=== PATIENT | male | born 1990 | race Caucasian/White ===

== ENCOUNTER 2017-03-21 20:26 | Emergency (ER) | payer MEDICAID ==
[~2017-03-21] VITALS: Ht 180.3 cm; Wt 78.5 kg
[~2017-03-21 20:26] MED LIST: DIAZ10TA4 PO; NAPR500T3 PO; ONDA4TAB10 PO; TRAZ50TA18 PO
[2017-03-21] MEDS ORDERED: KETOROLAC 30 MG/1 ML IVPush ONE (23:00)
[2017-03-21] MEDS ORDERED: FAMOTIDINE 20 MG/2 ML IVPush ONE (23:00)
[2017-03-21] MEDS ORDERED: DIPHENHYDRAMINE 50 MG/ML, 1ML IVPush ONE (23:00)
[2017-03-21] MEDS ORDERED: METOCLOPRAMIDE 5 MG/ML, 2ML IVPush ONE (23:00)
[2017-03-21] MEDS ORDERED: SODIUM CHLORIDE 0.9% 1,000ML IVBOLUS ONE (23:00)
[2017-03-21] MEDS ORDERED: FAMOTIDINE 20 MG/2 ML ONE (23:56)
[2017-03-21] MEDS ORDERED: METOCLOPRAMIDE 5 MG/ML, 2ML ONE (23:56)
[2017-03-21] MEDS ORDERED: KETOROLAC 30 MG/1 ML ONE (23:56)
[2017-03-21] MEDS ORDERED: DIPHENHYDRAMINE 50 MG/ML, 1ML ONE (23:56)
[2017-03-22] MEDS ORDERED: MORPHINE SULFATE 4 MG/ML, 1ML IVPush PRN (00:30)
[2017-03-22] MEDS ORDERED: MORPHINE SULFATE 4 MG/ML, 1ML ONE (00:34)
[2017-03-22 01:06] VITALS: BP 135/94
== END 2017-03-22 01:08 | disposition home or self-care (01) ==
LOC: ED 23:41
DX: G43.009 Migraine without aura, not intractable, without status migrainosus (principal); Z87.891 Personal history of nicotine dependence
CPT/HCPCS: 70450; 96361; 96374; 96375; 99284; J1200; J1885; J2765; J7030; S0028

== ENCOUNTER 2017-04-08 11:43 | Emergency (ER) | payer MEDICAID ==
[~2017-04-08] VITALS: Ht 180.3 cm; Wt 78.7 kg
[2017-04-08] MEDS ORDERED: KETOROLAC 30 MG/1 ML IM ONE (12:30)
[2017-04-08] MEDS ORDERED: PROMETHAZINE 25 MG/ML, 1ML IM ONE (12:30)
[2017-04-08] MEDS ORDERED: DIAZEPAM 5 MG TABLET PO ONE (12:30)
[2017-04-08] MEDS ORDERED: KETOROLAC 30 MG/1 ML ONE (12:39)
[2017-04-08] MEDS ORDERED: DIAZEPAM 5 MG TABLET ONE (12:40)
[2017-04-08] MEDS ORDERED: PROMETHAZINE 25 MG/ML, 1ML ONE (12:41)
[2017-04-08 14:44] VITALS: BP 129/78
== END 2017-04-08 14:46 | disposition home or self-care (01) ==
LOC: ED 13:32
DX: F13.239 Sedative, hypnotic or anxiolytic dependence with withdrawal, unspecified (principal); R51 Headache
CPT/HCPCS: 96372; 99284; J1885; J2550

== ENCOUNTER 2017-05-08 01:25 | Emergency (ER) | payer BC, MEDICAID ==
[~2017-05-08] VITALS: Ht 175.3 cm; Wt 75.0 kg
[2017-05-08 01:57] LABS: HEMOGLOBIN 14.9 g/dL (13.7-18.0); WHITE BLOOD COUNT 8.4 x10^3/uL (3.4-10)
[2017-05-08] MEDS ORDERED: MORPHINE SULFATE 4 MG/ML, 1ML ONE (01:58)
[2017-05-08] MEDS ORDERED: PROMETHAZINE 25 MG/ML, 1ML ONE (01:58)
[2017-05-08] MEDS ORDERED: FAMOTIDINE 20 MG/2 ML ONE (01:58)
[2017-05-08] MEDS ORDERED: MAALOX/HYOSCYAMINE/LIDOCAINE 45 ML BTL ONE (01:58)
[2017-05-08] MEDS ORDERED: FAMOTIDINE 20 MG/2 ML IVP ONE (02:00)
[2017-05-08] MEDS ORDERED: MAALOX/HYOSCYAMINE/LIDOCAINE 45 ML BTL PO ONE (02:00)
[2017-05-08] MEDS ORDERED: MORPHINE SULFATE 4 MG/ML, 1ML IVPush PRN (02:00)
[2017-05-08] MEDS ORDERED: PROMETHAZINE 25 MG/ML, 1ML IM ONE (02:00)
[2017-05-08 02:08] LABS: ASPARTATE AMINO TRANSFERASE 65 U/L (15-37); BLOOD UREA NITROGEN 13 mg/dL (7-18)
[2017-05-08] MEDS ORDERED: DULO20CA45 PO (02:08)
[2017-05-08] MEDS ORDERED: METOCLOPRAMIDE 5 MG/ML, 2ML ONE (03:45)
[2017-05-08] MEDS ORDERED: LORazepam 2 MG/ML, 1ML IVPush ONE (04:30)
[2017-05-08] MEDS ORDERED: METOCLOPRAMIDE 5 MG/ML, 2ML IVPush ONE (04:30)
[2017-05-08] MEDS ORDERED: LORazepam 2 MG/ML, 1ML ONE (04:31)
[2017-05-08] MEDS ORDERED: CHLORDIAZEPOXIDE 25 MG CAPSULE PO ONE (06:00)
[2017-05-08 06:03] VITALS: BP 136/79
== END 2017-05-08 06:27 | disposition home or self-care (01) ==
LOC: ED 06:20
DX: F10.239 Alcohol dependence with withdrawal, unspecified (principal); G43.909 Migraine, unspecified, not intractable, without status migrainosus; K29.20 Alcoholic gastritis without bleeding; K70.9 Alcoholic liver disease, unspecified; K85.90 Acute pancreatitis without necrosis or infection, unspecified
CPT/HCPCS: 36415; 80053; 80307; 83690; 85025; 93005; 96361; 96372; 96374; 99285; J2060; J2550; J2765; S0028

== ENCOUNTER 2018-11-20 13:09 | Inpatient (IN) | payer MEDICAID ==
[~2018-11-20] VITALS: Ht 180.3 cm; Wt 80.2 kg
[~2018-11-20 13:09] MED LIST changes: +ALPR1TAB2 PO; +CEPH-368 PO; +CLON1TAB11 PO; +CYCL2DRO4 OP; +DULO20CA45 PO; +MIRT30TA6 PO; +NAPR-685 PO; -NAPR500T3 PO; +OXYC-302 PO; +PRAM0.125 PO; +PRED5DRO20 OP; +PROP10TA16 PO; +RANI150T23 PO; -TRAZ50TA18 PO; +TRAZ50TA66 PO
[2018-11-20] MEDS ORDERED: VANCOMYCIN PER PHARMACY MC ONE (14:00)
[2018-11-20] MEDS ORDERED: VANCOMYCIN 1,600 MG in SODIUM CHLORIDE 0.9% 250 ML IV ONE (14:00)
[2018-11-20] MEDS ORDERED: PIPERACILLIN/TAZO/PMX 4.5GM 100 ML IVPB ONE (14:00)
[2018-11-20] MEDS ORDERED: SODIUM CHLORIDE FLUSH 10ML SYR IVF ONE (14:00)
[2018-11-20 14:27] LABS: ALANINE AMINOTRANSFERASE 42 U/L (12-78); ALBUMIN 4.6 g/dL (3.4-5.0); ANION GAP 10 mmol/L (5-15); CALCIUM 9.6 mg/dL (8.5-10.1); CHLORIDE 102 mmol/L (98-107)
[2018-11-20 14:29] LABS: ALKALINE PHOSPHATASE 101 U/L (45-117); TOTAL PROTEIN 8.8 g/dL (6.4-8.2)
[2018-11-20 14:32] LABS: BASOPHILS # (AUTO) 0.03 x10^3/uL (0-0.1); BASOPHILS % (AUTO) 1 % (0-1); EOSINOPHILS % (AUTO) 2 % (1-7); LYMPHOCYTES % (AUTO) 23 % (22-44); MD NO; MEAN CORPUSCULAR HEMOGLOBIN 30.1 pg (27.5-34.5); MEAN CORPUSCULAR VOLUME 86.2 fL (81-97); MEAN PLATELET VOLUME 7.4 fL (7.4-10.4); MONOCYTES # (AUTO) 0.27 x10^3/uL (0.2-0.8); MONOCYTES % (AUTO) 5 % (2-9); NEUTROPHILS # (AUTO) 3.89 x10^3/uL (1.8-6.8); NEUTROPHILS % (AUTO) 70 % (42-75); PLATELET COUNT 315 x10^3/uL (130-400); RED BLOOD COUNT 4.57 x10^6/uL (4.38-5.82); RED CELL DISTRIBUTION WIDTH 14.8 % (9.4-14.8)
--- NOTE | 2018-11-20 14:51 | NUR ---
Pt able to ambulate to bathroom with crutches. LLE wound with sutures in place and erythema and redness. Attempting to obtain IV access for antibitiotics. Pt is a difficult stick
--- NOTE | 2018-11-20 14:59 | NUR ---
PIV ATTEMPT X 3 BY THIS RN W/O SUCCESS. NOTIFIED OF DELAY IN ANTIBIOTIC'S 2/2 TO NO IV ACCESS. RN, URBAN TO ATTEMPT US GUIDED
[2018-11-20] MEDS ORDERED: SODIUM CHLORIDE FLUSH 10ML SYR IVF PRN (15:30)
[2018-11-20] MEDS ORDERED: ONDANSETRON ODT 4 MG PO PRN (16:00)
[2018-11-20] MEDS ORDERED: POLYETHYLENE GLYCOL 17 GM PACKET PO PRN (16:00)
[2018-11-20] MEDS ORDERED: LABETALOL 5MG/ML, 20ML IVPush PRN (16:00)
[2018-11-20] MEDS ORDERED: ONDANSETRON 2MG/ML, 2ML IVPush PRN (16:00)
--- NOTE | 2018-11-20 16:00 | NUR ---
IV ACCESSED, HOSPITALIST AT BEDSIDE FOR ADMIT. ABX STARTED PER MAR BLOOD CULTURED DRAWN PRIOR
[2018-11-20] MEDS ORDERED: PHARMACOKINETIC MONITORING MC PRN (16:30)
[2018-11-20] MEDS ORDERED: PHARMACOKINETIC CONSULTATION MC ONE (16:30)
[2018-11-20] MEDS ORDERED: VANCOMYCIN PER PHARMACY MC PRN (16:30)
[2018-11-20 16:32] LABS: FREE T4 (FREE THYROXINE) 1.68 ng/dL (0.76-1.46); THYROID STIMULATING HORMONE 1.41 mIU/L (0.358-3.740)
[2018-11-20] MEDS ORDERED: ENOXAPARIN 40 MG/0.4 ML ONE (16:38)
[2018-11-20] MEDS: ENOXAPARIN 40 MG/0.4 ML SQ SCH (16:42)
[2018-11-20 17:19] VITALS: BP 120/78
[2018-11-20 19:46] VITALS: BP 125/84
[2018-11-20] MEDS: AMPICILLIN/SULBACTAM 3 GM in SODIUM CHLORIDE 0.9% 100 ML IV SCH (20:03)
[2018-11-20] MEDS: IBUPROFEN 200 MG TABLET PO PRN (21:23)
[2018-11-20 22:43] LABS: MICROSCOPIC NOT IND
[2018-11-20 22:50] LABS: CULTURE INDICATED? NO
[2018-11-21] MEDS: AMPICILLIN/SULBACTAM 3 GM in SODIUM CHLORIDE 0.9% 100 ML IV SCH ×4 (01:30→19:57)
[2018-11-21 01:46] VITALS: BP 110/57
[2018-11-21] MEDS: VANCOMYCIN 1,600 MG in SODIUM CHLORIDE 0.9% 250 ML IV SCH ×2 (04:51→17:49)
[2018-11-21 05:58] LABS: BASOPHILS # (AUTO) 0.03 x10^3/uL (0-0.1); BASOPHILS % (AUTO) 1 % (0-1); EOSINOPHILS % (AUTO) 2 % (1-7); LYMPHOCYTES # (AUTO) 1.23 x10^3/uL (1-3.4); LYMPHOCYTES % (AUTO) 20 % (22-44); MD NO; MEAN CORPUSCULAR HEMOGLOBIN 30.1 pg (27.5-34.5); MEAN CORPUSCULAR HGB CONC 35.2 g/dL (33.2-36.2); MEAN CORPUSCULAR VOLUME 85.4 fL (81-97); MEAN PLATELET VOLUME 7.8 fL (7.4-10.4); MONOCYTES # (AUTO) 0.44 x10^3/uL (0.2-0.8); MONOCYTES % (AUTO) 7 % (2-9); NEUTROPHILS % (AUTO) 71 % (42-75); PLATELET COUNT 267 x10^3/uL (130-400); RED BLOOD COUNT 4.47 x10^6/uL (4.38-5.82); RED CELL DISTRIBUTION WIDTH 14.9 % (9.4-14.8)
[2018-11-21 06:08] LABS: ALBUMIN 3.5 g/dL (3.4-5.0); ANION GAP 7 mmol/L (5-15); CALCIUM 8.4 mg/dL (8.5-10.1); CHLORIDE 111 mmol/L (98-107)
[2018-11-21 06:21] LABS: ALANINE AMINOTRANSFERASE 32 U/L (12-78); ALKALINE PHOSPHATASE 85 U/L (45-117); CREATININE 0.81 mg/dL (0.7-1.3); THYROID STIMULATING HORMONE 0.451 mIU/L (0.358-3.740); TOTAL PROTEIN 7.2 g/dL (6.4-8.2)
[2018-11-21 07:48] VITALS: BP 128/79
[2018-11-21] MEDS: SENNA/DOCUSATE TABLET PO SCH (07:51)
[2018-11-21] MEDS: IBUPROFEN 200 MG TABLET PO PRN ×3 (07:54→19:58)
[2018-11-21 13:12] VITALS: BP 103/67
[2018-11-21] MEDS: ENOXAPARIN 40 MG/0.4 ML SQ SCH (17:48)
[2018-11-21 20:40] VITALS: BP 124/77
[2018-11-22 01:12] VITALS: BP 120/82
[2018-11-22] MEDS: AMPICILLIN/SULBACTAM 3 GM in SODIUM CHLORIDE 0.9% 100 ML IV SCH ×3 (01:54→15:15)
[2018-11-22] MEDS: VANCOMYCIN 1,600 MG in SODIUM CHLORIDE 0.9% 250 ML IV SCH (04:17)
[2018-11-22 05:14] LABS: ALBUMIN 3.2 g/dL (3.4-5.0); ANION GAP 8 mmol/L (5-15); CALCIUM 8.8 mg/dL (8.5-10.1); CHLORIDE 111 mmol/L (98-107)
[2018-11-22 05:20] LABS: ALANINE AMINOTRANSFERASE 29 U/L (12-78); ALKALINE PHOSPHATASE 70 U/L (45-117); BILIRUBIN,TOTAL 0.6 mg/dL (0.2-1.0); CREATININE 0.78 mg/dL (0.7-1.3); TOTAL PROTEIN 6.9 g/dL (6.4-8.2)
[2018-11-22 05:22] LABS: BASOPHILS # (AUTO) 0.03 x10^3/uL (0-0.1); BASOPHILS % (AUTO) 1 % (0-1); EOSINOPHILS # (AUTO) 0.05 x10^3/uL (0-0.4); EOSINOPHILS % (AUTO) 1 % (1-7); LYMPHOCYTES # (AUTO) 1.38 x10^3/uL (1-3.4); LYMPHOCYTES % (AUTO) 28 % (22-44); MD NO; MEAN CORPUSCULAR HEMOGLOBIN 29.7 pg (27.5-34.5); MEAN CORPUSCULAR HGB CONC 34.6 g/dL (33.2-36.2); MEAN CORPUSCULAR VOLUME 85.9 fL (81-97); MONOCYTES # (AUTO) 0.37 x10^3/uL (0.2-0.8); MONOCYTES % (AUTO) 7 % (2-9); NEUTROPHILS # (AUTO) 3.11 x10^3/uL (1.8-6.8); NEUTROPHILS % (AUTO) 63 % (42-75); PLATELET COUNT 220 x10^3/uL (130-400); RED BLOOD COUNT 3.95 x10^6/uL (4.38-5.82); RED CELL DISTRIBUTION WIDTH 14.9 % (9.4-14.8)
[2018-11-22 06:51] VITALS: BP 114/71
[2018-11-22] MEDS: SENNA/DOCUSATE TABLET PO SCH (08:03)
[2018-11-22 13:38] VITALS: BP 118/80
== END 2018-11-22 17:55 | disposition left against medical advice (07) | DRG 603 ==
LOC: ED 14:08 → EDIP 15:04 → 3NE 16:00
PROVIDERS: ADMIT Internal Medicine; ATTEND Internal Medicine
DX: L03.115 Cellulitis of right lower limb (principal); F11.20 Opioid dependence, uncomplicated; L03.116 Cellulitis of left lower limb; F41.9 Anxiety disorder, unspecified; F17.210 Nicotine dependence, cigarettes, uncomplicated; F10.10 Alcohol abuse, uncomplicated; Z83.3 Family history of diabetes mellitus; Z82.49 Family history of ischemic heart disease and other diseases of the circulatory system; Z81.1 Family history of alcohol abuse and dependence; J45.909 Unspecified asthma, uncomplicated; F32.9 Major depressive disorder, single episode, unspecified; E87.6 Hypokalemia; D64.9 Anemia, unspecified; Z53.21 Procedure and treatment not carried out due to patient leaving prior to being seen by health care provider
CPT/HCPCS: 36415; 80053; 81003; 83605; 83735; 84100; 84145; 84439; 84443; 85025; 87040; 87070; 87205; 96365; 99285; G0378; J0295; J1650; J2543; J3370; J7050

== ENCOUNTER 2018-12-23 13:06 | Inpatient (IN) | payer MEDICAID ==
[~2018-12-23] VITALS: Ht 180.3 cm; Wt 81.6 kg
[~2018-12-23 13:06] MED LIST changes: -MIRT30TA6 PO; +MIRT30TA97 PO
[2018-12-23] MEDS ORDERED: SODIUM CHLORIDE FLUSH 10ML SYR IVF ONE ×2 (14:00→15:30)
[2018-12-23 14:19] LABS: BASOPHILS # (AUTO) 0.06 x10^3/uL (0-0.1); BASOPHILS % (AUTO) 1 % (0-1); EOSINOPHILS # (AUTO) 0.06 x10^3/uL (0-0.4); EOSINOPHILS % (AUTO) 1 % (1-7); LYMPHOCYTES % (AUTO) 16 % (22-44); MD NO; MEAN CORPUSCULAR HEMOGLOBIN 30.1 pg (27.5-34.5); MEAN CORPUSCULAR HGB CONC 34.6 g/dL (33.2-36.2); MEAN CORPUSCULAR VOLUME 87.1 fL (81-97); MEAN PLATELET VOLUME 8.4 fL (7.4-10.4); MONOCYTES # (AUTO) 0.72 x10^3/uL (0.2-0.8); MONOCYTES % (AUTO) 6 % (2-9); NEUTROPHILS # (AUTO) 8.85 x10^3/uL (1.8-6.8); NEUTROPHILS % (AUTO) 76 % (42-75); PLATELET COUNT 272 x10^3/uL (130-400); RED BLOOD COUNT 5.33 x10^6/uL (4.38-5.82); RED CELL DISTRIBUTION WIDTH 14.6 % (9.4-14.8)
[2018-12-23 14:29] LABS: ALANINE AMINOTRANSFERASE 57 U/L (12-78); ALBUMIN 4.7 g/dL (3.4-5.0); ANION GAP 9 mmol/L (5-15); CALCIUM 10.1 mg/dL (8.5-10.1); CHLORIDE 98 mmol/L (98-107); CREATININE 2.76 mg/dL (0.7-1.3)
[2018-12-23 14:32] LABS: ALKALINE PHOSPHATASE 86 U/L (45-117); BILIRUBIN,TOTAL 1.7 mg/dL (0.2-1.0); TOTAL PROTEIN 9.1 g/dL (6.4-8.2)
--- NOTE | 2018-12-23 14:58 | NUR ---
TO ROOM AT THIS TIME
--- NOTE | 2018-12-23 15:08 | NUR ---
FIRST CONTACT WITH PT. PT REPORTS INCREASING REDNESS/SWELLING/PAIN OVER L WRIST/HAND AND R GREAT TOE AND R UNDERWOOD SP HEROIN USE. OPEN WOUND NOTED ON RUE; NO DRAINAGE NOTED. PT REPORTS RECENT ADMIT FOR SURGICAL DEBRIDEMENT OF RLE. REPORTS RECENTLY FINISHING ABX RX, "I DON'T KNOW WHICH ONE- MAYBE KEFLEX?" PT IS TACHYCARDIC, HR 110-115 AND AFEBRILE. DENIES N/V/D/FEVER. BP/SPO2/ECG MONITORING IN PLACE. FAMILY AT BEDSIDE.
[2018-12-23] MEDS ORDERED: SODIUM CHLORIDE 0.9% 1,000ML IVBOLUS ONE (15:30)
[2018-12-23] MEDS ORDERED: AMPICILLIN/SULBACTAM 3 GM in SODIUM CHLORIDE 0.9% 100 ML IV ONE (15:30)
[2018-12-23] MEDS ORDERED: VANCOMYCIN PER PHARMACY MC ONE (15:30)
--- NOTE | 2018-12-23 15:50 | NUR ---
IV ESTABLISHED, BC X 1 DRAWN WITH IV START. IVF HUNG. AWAITING SECOND BC DRAW FOR ABX START.
[2018-12-23] MEDS ORDERED: VANCOMYCIN 1,600 MG in SODIUM CHLORIDE 0.9% 250 ML IV ONE (16:00)
[2018-12-23] MEDS ORDERED: PHARMACOKINETIC CONSULTATION MC ONE (16:00)
--- NOTE | 2018-12-23 16:35 | NUR ---
BC X2 DRAWN. ABX INITIATED.
[2018-12-23] MEDS ORDERED: SODIUM CHLORIDE 0.9% 1,000 ML IV SCH (17:01)
--- NOTE | 2018-12-23 17:13 | NUR ---
PT RETURNED FROM CT. NO S/S OF ABX RXN NOTED. SECOND ABX INITIATED. POC IS ADMIT. AWAITING BED ASSIGNMENT.
[2018-12-23] MEDS ORDERED: ALPRazolam 1MG TABLET PO SCH (17:30)
[2018-12-23] MEDS ORDERED: SODIUM CHLORIDE 0.9% 1,000 ML IV ONE (17:30)
[2018-12-23] MEDS ORDERED: ACETAMINOPHEN 325 MG TABLET PO PRN (17:30)
[2018-12-23] MEDS ORDERED: LABETALOL 5MG/ML, 20ML IVPush PRN (17:30)
[2018-12-23] MEDS ORDERED: ONDANSETRON 2MG/ML, 2ML IVPush PRN (17:30)
[2018-12-23 17:35] LABS: INTERNATIONAL NORMALIZED RATIO 1.03 (0.93-1.1); PROTHROMBIN TIME 10.8 Seconds (9.6-11.5)
--- NOTE | 2018-12-23 17:36 | NUR ---
REPORT TO TONY RN
[2018-12-23] MEDS: ALPRazolam 1MG TABLET PO PRN (18:02)
[2018-12-23] MEDS: HEPARIN 5,000 UNITS/ML, 1ML SQ SCH (18:31)
[2018-12-23 18:45] LABS: HCT (SEDRATE) 46.4 % (39.2-51.8)
[2018-12-23] MEDS: OXYcodone/APAP 5/325MG TABLET PO PRN ×2 (18:51→20:59)
[2018-12-23] MEDS: LINEZOLID PMX 600MG/300ML 300 ML IV SCH (18:51)
[2018-12-23 19:53] VITALS: BP 110/71
[2018-12-23 20:35] LABS: MICROSCOPIC NOT IND
[2018-12-23 20:42] LABS: CULTURE INDICATED? NO
[2018-12-23] MEDS: PIPERACILLIN/TAZO/PMX 3.375GM 50 ML IV SCH (21:49)
[2018-12-23] MEDS: MIRTAZAPINE 30 MG TAB.RAPDIS PO SCH (21:49)
[2018-12-24] MEDS: morphine SULFATE 10 MG/ML, 1ML IVPush PRN ×4 (00:46→21:32)
[2018-12-24 01:27] VITALS: BP 114/72
[2018-12-24] MEDS: ALPRazolam 1MG TABLET PO PRN ×2 (02:10→15:30)
[2018-12-24] MEDS: HEPARIN 5,000 UNITS/ML, 1ML SQ SCH ×3 (02:10→16:31)
[2018-12-24] MEDS: OXYcodone/APAP 5/325MG TABLET PO PRN ×3 (02:17→22:47)
[2018-12-24] MEDS: PIPERACILLIN/TAZO/PMX 3.375GM 50 ML IV SCH ×4 (03:40→21:22)
[2018-12-24 05:39] LABS: CHLORIDE 109 mmol/L (98-107)
[2018-12-24 05:46] LABS: ALANINE AMINOTRANSFERASE 44 U/L (12-78); ALBUMIN 2.8 g/dL (3.4-5.0); ALKALINE PHOSPHATASE 55 U/L (45-117); ANION GAP 6 mmol/L (5-15); BILIRUBIN,TOTAL 0.8 mg/dL (0.2-1.0); TOTAL PROTEIN 5.8 g/dL (6.4-8.2)
[2018-12-24 05:56] LABS: BASOPHILS # (AUTO) 0.06 x10^3/uL (0-0.1); BASOPHILS % (AUTO) 1 % (0-1); EOSINOPHILS % (AUTO) 2 % (1-7); LYMPHOCYTES # (AUTO) 1.62 x10^3/uL (1-3.4); LYMPHOCYTES % (AUTO) 30 % (22-44); MD NO; MEAN CORPUSCULAR HEMOGLOBIN 30.4 pg (27.5-34.5); MEAN CORPUSCULAR HGB CONC 34.8 g/dL (33.2-36.2); MEAN CORPUSCULAR VOLUME 87.4 fL (81-97); MEAN PLATELET VOLUME 8.4 fL (7.4-10.4); MONOCYTES # (AUTO) 0.46 x10^3/uL (0.2-0.8); MONOCYTES % (AUTO) 8 % (2-9); NEUTROPHILS # (AUTO) 3.24 x10^3/uL (1.8-6.8); NEUTROPHILS % (AUTO) 59 % (42-75); PLATELET COUNT 190 x10^3/uL (130-400); RED BLOOD COUNT 3.87 x10^6/uL (4.38-5.82); RED CELL DISTRIBUTION WIDTH 14.6 % (9.4-14.8)
[2018-12-24] MEDS: LINEZOLID PMX 600MG/300ML 300 ML IV SCH (06:23)
[2018-12-24 08:38] VITALS: BP 117/78
[2018-12-24] MEDS ORDERED: VANCOMYCIN PER PHARMACY MC PRN (13:30)
[2018-12-24] MEDS ORDERED: PHARMACOKINETIC MONITORING MC PRN (14:30)
[2018-12-24] MEDS ORDERED: PHARMACOKINETIC CONSULTATION MC ONE (14:30)
[2018-12-24] MEDS ORDERED: GADOBUTROL 7.5 MMOL/7.5 ML PFS ONE (15:36)
[2018-12-24] MEDS: VANCOMYCIN 1,600 MG in SODIUM CHLORIDE 0.9% 250 ML IV SCH (16:30)
[2018-12-24 16:32] VITALS: BP 118/60
[2018-12-24] MEDS ORDERED: SODIUM CHLORIDE 0.9% 1,000 ML IV SCH (17:01)
[2018-12-24 19:04] VITALS: BP 116/74
[2018-12-24] MEDS: MIRTAZAPINE 30 MG TAB.RAPDIS PO SCH (21:22)
[2018-12-25] MEDS ORDERED: IBUPROFEN 600 MG TABLET ONE (00:52)
[2018-12-25] MEDS: morphine SULFATE 10 MG/ML, 1ML IVPush PRN ×2 (01:00→10:34)
[2018-12-25] MEDS ORDERED: IBUPROFEN 200 MG TABLET PO PRN (01:00)
[2018-12-25] MEDS: HEPARIN 5,000 UNITS/ML, 1ML SQ SCH ×2 (01:22→09:12)
[2018-12-25 01:27] VITALS: BP 125/78
[2018-12-25] MEDS: ALPRazolam 1MG TABLET PO PRN ×2 (01:28→14:44)
[2018-12-25] MEDS ORDERED: IBUPROFEN 600 MG TABLET PO PRN (01:30)
[2018-12-25] MEDS: PIPERACILLIN/TAZO/PMX 3.375GM 50 ML IV SCH (03:30)
[2018-12-25] MEDS: VANCOMYCIN 1,600 MG in SODIUM CHLORIDE 0.9% 250 ML IV SCH (04:22)
[2018-12-25] MEDS: OXYcodone/APAP 5/325MG TABLET PO PRN (04:25)
[2018-12-25 05:34] LABS: BASOPHILS # (AUTO) 0.06 x10^3/uL (0-0.1); BASOPHILS % (AUTO) 1 % (0-1); EOSINOPHILS # (AUTO) 0.11 x10^3/uL (0-0.4); EOSINOPHILS % (AUTO) 2 % (1-7); LYMPHOCYTES # (AUTO) 1.56 x10^3/uL (1-3.4); LYMPHOCYTES % (AUTO) 30 % (22-44); MD NO; MEAN CORPUSCULAR HEMOGLOBIN 30.4 pg (27.5-34.5); MEAN CORPUSCULAR HGB CONC 34.6 g/dL (33.2-36.2); MEAN CORPUSCULAR VOLUME 87.9 fL (81-97); MEAN PLATELET VOLUME 8.5 fL (7.4-10.4); MONOCYTES # (AUTO) 0.48 x10^3/uL (0.2-0.8); MONOCYTES % (AUTO) 9 % (2-9); NEUTROPHILS # (AUTO) 3.07 x10^3/uL (1.8-6.8); NEUTROPHILS % (AUTO) 58 % (42-75); PLATELET COUNT 226 x10^3/uL (130-400); RED BLOOD COUNT 3.93 x10^6/uL (4.38-5.82); RED CELL DISTRIBUTION WIDTH 14.4 % (9.4-14.8)
[2018-12-25 05:50] LABS: ANION GAP 6 mmol/L (5-15); CALCIUM 8.3 mg/dL (8.5-10.1); CHLORIDE 113 mmol/L (98-107)
[2018-12-25 05:54] LABS: ALANINE AMINOTRANSFERASE 45 U/L (12-78); ALKALINE PHOSPHATASE 56 U/L (45-117); BILIRUBIN,TOTAL 0.4 mg/dL (0.2-1.0); CREATININE 0.99 mg/dL (0.7-1.3); TOTAL PROTEIN 6.4 g/dL (6.4-8.2)
[2018-12-25 07:30] VITALS: BP 120/76
[2018-12-25] MEDS ORDERED: DOXYCYCLINE 100MG TABLET PO SCH (09:00)
[2018-12-25] MEDS ORDERED: AMOXICILLIN/CLAV 875-125MG TABLET PO SCH (09:00)
[2018-12-25] MEDS ORDERED: ACET325T14 PO (11:26)
[2018-12-25] MEDS ORDERED: LINE600T37 PO (11:26)
[2018-12-25] MEDS ORDERED: LINEZOLID 600 MG TABLET PO SCH (11:30)
[2018-12-25] MEDS ORDERED: ENOXAPARIN 40 MG/0.4 ML SQ SCH (14:30)
[2018-12-25] MEDS ORDERED: DOXY100T PO (16:46)
== END 2018-12-25 15:35 | disposition home or self-care (01) | DRG 871 ==
LOC: ED 16:12 → EDIP 17:01 → 4WST 17:45
PROVIDERS: ADMIT Internal Medicine; ATTEND Internal Medicine
DX: A41.9 Sepsis, unspecified organism (principal); N17.0 Acute kidney failure with tubular necrosis; E87.1 Hypo-osmolality and hyponatremia; L03.116 Cellulitis of left lower limb; D17.9 Benign lipomatous neoplasm, unspecified; E11.9 Type 2 diabetes mellitus without complications; E86.0 Dehydration; F41.9 Anxiety disorder, unspecified; F11.10 Opioid abuse, uncomplicated; R65.20 Severe sepsis without septic shock; F32.9 Major depressive disorder, single episode, unspecified; Z88.3 Allergy status to other anti-infective agents; Z88.2 Allergy status to sulfonamides; Z88.8 Allergy status to other drugs, medicaments and biological substances
CPT/HCPCS: 36415; 76770; 80053; 81003; 82436; 82570; 83605; 84133; 84145; 84300; 85025; 85610; 85651; 85730; 86140; 87040; 87070; 87077; 87186; 87205; 96361; 96365; 96375; 99291; A9585; G0378; J0295; J1644; J2020; J2543; J3370; J2270; J7030; J7050

== ENCOUNTER 2019-05-16 01:29 | Emergency (ER) | payer MEDICAID ==
[~2019-05-16] VITALS: Ht 180.3 cm; Wt 77.7 kg
[~2019-05-16 01:29] MED LIST changes: +ACET325T14 PO; +DOXY100T PO; +LINE600T37 PO
[2019-05-16 02:15] LABS: BASOPHILS # (AUTO) 0.04 x10^3/uL (0-0.1); BASOPHILS % (AUTO) 0 % (0-1); EOSINOPHILS % (AUTO) 1 % (1-7); LYMPHOCYTES # (AUTO) 2.13 x10^3/uL (1-3.4); LYMPHOCYTES % (AUTO) 23 % (22-44); MD NO; MEAN CORPUSCULAR HEMOGLOBIN 28.7 pg (27.5-34.5); MEAN CORPUSCULAR HGB CONC 33.2 g/dL (33.2-36.2); MEAN CORPUSCULAR VOLUME 86.6 fL (81-97); MEAN PLATELET VOLUME 8.4 fL (7.4-10.4); MONOCYTES # (AUTO) 0.52 x10^3/uL (0.2-0.8); MONOCYTES % (AUTO) 6 % (2-9); NEUTROPHILS # (AUTO) 6.67 x10^3/uL (1.8-6.8); NEUTROPHILS % (AUTO) 71 % (42-75); PLATELET COUNT 271 x10^3/uL (130-400); RED CELL DISTRIBUTION WIDTH 13.8 % (9.4-14.8)
[2019-05-16 02:24] LABS: ALBUMIN 4.1 g/dL (3.4-5.0); ANION GAP 7 mmol/L (5-15); CALCIUM 9.1 mg/dL (8.5-10.1); CHLORIDE 104 mmol/L (98-107)
[2019-05-16 03:54] VITALS: BP 122/80
--- NOTE | 2019-05-16 04:34 | NUR ---
All results back. Pt up for recheck.
[2019-05-16] MEDS ORDERED: LIDOCAINE-MPF 1%, 5ML ONE (04:35)
--- NOTE | 2019-05-16 04:39 | NUR ---
I&D to take place. Set up and awaiting pa.
--- NOTE | 2019-05-16 04:42 | NUR ---
Pa at bedside.
[2019-05-16] MEDS ORDERED: LIDOCAINE-MPF 1%, 5ML INFIL ONE (05:00)
[2019-05-16] MEDS ORDERED: ONDANSETRON ODT 4 MG ONE (05:03)
--- NOTE | 2019-05-16 05:07 | NUR ---
Pt states feeling nauseated after I&D and medical detailist per mar and md order.
[2019-05-16] MEDS ORDERED: ONDANSETRON ODT 4 MG PO ONE (05:30)
== END 2019-05-16 05:09 ==
LOC: ED 05:03
DX: L02.413 Cutaneous abscess of right upper limb (principal); E11.9 Type 2 diabetes mellitus without complications
CPT/HCPCS: 10060; 36415; 76881; 80048; 82040; 85025; 99284; Q0162

== ENCOUNTER 2019-05-18 16:05 | Inpatient (IN) | payer MEDICAID ==
[~2019-05-18] VITALS: Ht 180.3 cm; Wt 84.3 kg
[2019-05-23 07:28] VITALS: BP 165/77
== END 2019-05-23 11:00 | disposition home or self-care (01) | DRG 603 ==
LOC: ED 17:32 → EDIP 17:34 → 4NOR 19:07
PROVIDERS: ADMIT Internal Medicine; ATTEND Internal Medicine
PROC: 0X9D3ZZ Drainage of Right Lower Arm, Percutaneous Approach (ICD-10-PCS; principal; 2019-05-21)
DX: L02.413 Cutaneous abscess of right upper limb (principal); E87.2 Acidosis; L03.113 Cellulitis of right upper limb; F41.9 Anxiety disorder, unspecified; D64.9 Anemia, unspecified; E11.9 Type 2 diabetes mellitus without complications; B19.20 Unspecified viral hepatitis C without hepatic coma; I10 Essential (primary) hypertension; F11.10 Opioid abuse, uncomplicated; G47.00 Insomnia, unspecified; Z87.891 Personal history of nicotine dependence; Z71.51 Drug abuse counseling and surveillance of drug abuser
CPT/HCPCS: 36415; 80048; 80053; 80074; 80202; 82040; 83540; 83550; 83605; 85025; 85610; 86140; 87040; 87070; 87075; 87077; 87186; 87205; 87521; 87806; 96365; 99285; G0378; J0295; J0696; J1644; J1885; J2250; J2405; J2704; J3010; J3370; Q0162; G0475; J2270; J7030; J7050

== ENCOUNTER 2019-06-01 09:22 | Emergency (ER) | payer MEDICAID ==
[~2019-06-01] VITALS: Ht 180.3 cm; Wt 75.4 kg
[~2019-06-01 09:22] MED LIST changes: +ACET325T26 PO; +FERR-51 PO; +LINE600T2 PO; -LINE600T37 PO; +RANI-467 PO; -RANI150T23 PO
[2019-06-01 09:30] VITALS: BP 149/99
[2019-06-01] MEDS ORDERED: NEOSPORIN OINT. PKT 1 PACKET ONE (09:51)
--- NOTE | 2019-06-01 10:16 | NUR ---
Patient/Caregiver given discharge instructions and they have confirmed that they understand the instructions. Patient ambulatory with steady gait.
[2019-06-11] MEDS ORDERED: CLINDAMYCIN (00:04)
[2019-06-11] MEDS ORDERED: FEOSOL (00:04)
[2019-06-11] MEDS ORDERED: DIAZ5TAB PO (00:04)
[2019-06-11] MEDS ORDERED: ROZEREM (00:04)
[2019-06-11] MEDS ORDERED: CLON0.1T2 PO (19:20)
[2019-06-11] MEDS ORDERED: TRAZ-137 PO (19:23)
[2019-06-11] MEDS ORDERED: RANI150T4 PO (19:25)
[2019-06-11] MEDS ORDERED: MIRT-34 PO (19:26)
[2019-06-11] MEDS ORDERED: PRAM0.12 PO (19:28)
[2019-06-11] MEDS ORDERED: PROP10TA51 PO (19:30)
== END 2019-06-01 10:18 | disposition home or self-care (01) ==
LOC: ED 10:07
DX: L02.413 Cutaneous abscess of right upper limb (principal)
CPT/HCPCS: 99283

== ENCOUNTER 2019-06-10 23:06 | Inpatient (IN) | payer MEDICAID ==
[~2019-06-10] VITALS: Ht 177.8 cm; Wt 77.3 kg
[2019-06-11 19:29] VITALS: BP 126/80
== END 2019-06-11 21:30 | disposition left against medical advice (07) | DRG 683 ==
LOC: ED 23:54 → EDIP 06-11 02:12 → 3NE 06-11 03:31
PROVIDERS: ADMIT Internal Medicine; ATTEND Internal Medicine
DX: N17.9 Acute kidney failure, unspecified (principal); R45.851 Suicidal ideations; R65.10 Systemic inflammatory response syndrome (SIRS) of non-infectious origin without acute organ dysfunction; Z53.21 Procedure and treatment not carried out due to patient leaving prior to being seen by health care provider; F41.9 Anxiety disorder, unspecified; B19.20 Unspecified viral hepatitis C without hepatic coma; Z87.891 Personal history of nicotine dependence
CPT/HCPCS: 36415; 71045; 76770; 80048; 80053; 80307; 81001; 82040; 83605; 83930; 83935; 84145; 85025; 85651; 87040; 93005; 93306; 96365; G0378; J0696; J7030

== ENCOUNTER 2019-06-12 00:32 | Emergency (ER) | payer MEDICAID ==
[~2019-06-12] VITALS: Ht 180.3 cm; Wt 78.7 kg
[2019-06-12 03:33] VITALS: BP 116/71
== END 2019-06-12 04:03 | disposition home or self-care (01) ==
LOC: ED 00:41
DX: M54.5 Low back pain (principal)
CPT/HCPCS: 36415; 72158; 80053; 85025; 99284; A9585

== ENCOUNTER 2020-01-30 17:16 | Emergency (ER) | payer MEDICAID ==
[~2020-01-30] VITALS: Ht 180.3 cm; Wt 76.8 kg
[~2020-01-30 17:16] MED LIST changes: +CLINDAMYCIN; +CLON0.1T2 PO; +DIAZ5TAB PO; +FEOSOL; +LINE600T12 PO; -LINE600T2 PO; +MIRT-34 PO; +PRAM0.12 PO; +PROP10TA51 PO; +RANI150T4 PO; +ROZEREM; +TRAZ-175 PO
--- NOTE | 2020-01-30 17:40 | NUR ---
PT HAS ABCESS ON RIGHT ARM FROM HERION USE. ARM HAS ERYTHEMA ON UPPER ARM W 2 LARGE ABCESS, HOT AND FIRM TO TOUCH. PT IS TACHY, FEBRILE. PT NOT IN DISTRESS. DENIES N/V/D. TOOK AMOXICILLIN AT HOME, HAS NOT TAKEN ANY OTHER PAIN MEDS. HORSEBACK EXCAVATOR APPLIED.
[2020-01-30] MEDS ORDERED: ACETAMINOPHEN 500 MG TABLET ONE (17:55)
[2020-01-30] MEDS ORDERED: ACETAMINOPHEN 500 MG TABLET PO ONE (18:00)
[2020-01-30] MEDS ORDERED: SODIUM CHLORIDE 0.9% 1,000ML IVBOLUS ONE (18:00)
--- NOTE | 2020-01-30 18:00 | NUR ---
IV ESTABLISHED, IVF INFUSING, LABS AND BLOOD CULTURES DRAWN
[2020-01-30] MEDS ORDERED: DIPH,PERTUSS(ACELL),TET VAC/PF 0.5 ML IM-VACC ONE ×2 (18:21→18:30)
[2020-01-30] MEDS ORDERED: LIDOCAINE-MPF 1%, 5ML ONE ×2 (18:22→20:43)
[2020-01-30] MEDS ORDERED: LIDOCAINE 1%, 10ML INFIL ONE (18:30)
[2020-01-30 18:33] LABS: BASOPHILS # (AUTO) 0.02 x10^3/uL (0-0.1); BASOPHILS % (AUTO) 0 % (0-1); EOSINOPHILS % (AUTO) 1 % (1-7); LYMPHOCYTES # (AUTO) 0.67 x10^3/uL (1-3.4); LYMPHOCYTES % (AUTO) 5 % (22-44); MD NO; MEAN CORPUSCULAR HEMOGLOBIN 28.2 pg (27.5-34.5); MEAN CORPUSCULAR HGB CONC 33.9 g/dL (33.2-36.2); MEAN CORPUSCULAR VOLUME 83.1 fL (81-97); MEAN PLATELET VOLUME 9.9 fL (7.4-10.4); MONOCYTES # (AUTO) 0.62 x10^3/uL (0.2-0.8); MONOCYTES % (AUTO) 4 % (2-9); NEUTROPHILS # (AUTO) 13.46 x10^3/uL (1.8-6.8); NEUTROPHILS % (AUTO) 91 % (42-75); PLATELET COUNT 181 x10^3/uL (130-400); RED BLOOD COUNT 4.79 x10^6/uL (4.38-5.82); RED CELL DISTRIBUTION WIDTH 13.7 % (9.4-14.8)
[2020-01-30 18:45] LABS: ALANINE AMINOTRANSFERASE 21 U/L (12-78); ALBUMIN 3.6 g/dL (3.4-5.0); ANION GAP 7 mmol/L (5-15); CHLORIDE 105 mmol/L (98-107); CREATININE 0.97 mg/dL (0.7-1.3)
[2020-01-30] MEDS ORDERED: CEFTRIAXONE PMX 1GM/50ML 50 ML IV ONE (18:45)
[2020-01-30 18:47] LABS: ALKALINE PHOSPHATASE 90 U/L (45-117); BILIRUBIN,TOTAL 0.6 mg/dL (0.2-1.0); TOTAL PROTEIN 8.2 g/dL (6.4-8.2)
[2020-01-30] MEDS ORDERED: CEFTRIAXONE PMX 1GM/50ML 50 ML ONE (18:54)
[2020-01-30] MEDS ORDERED: VANCOMYCIN PER PHARMACY MC PRN (19:00)
[2020-01-30] MEDS ORDERED: VANCOMYCIN 1,900 MG in SODIUM CHLORIDE 0.9% 250 ML IV ONE (19:15)
[2020-01-30] MEDS ORDERED: OMNIPAQUE 350 MG/ML, 100ML BOTTLE ONE (19:22)
--- NOTE | 2020-01-30 19:23 | NUR ---
PT BACK FROM CT, ABX INFUSING.
[2020-01-30] MEDS ORDERED: HYDROcodone/APAP 5/325 TABLET ONE (20:38)
[2020-01-30 20:52] VITALS: BP 130/78
--- NOTE | 2020-01-30 21:09 | NUR ---
Patient/Caregiver given discharge instructions and they have confirmed that they understand the instructions. Patient ambulatory with steady gait.
[2020-01-30] MEDS ORDERED: HYDROcodone/APAP 5/325 TABLET PO ONE ×2 (21:30)
== END 2020-01-30 21:10 | disposition home or self-care (01) ==
LOC: ED 21:00
DX: L03.113 Cellulitis of right upper limb (principal); L02.413 Cutaneous abscess of right upper limb; G43.909 Migraine, unspecified, not intractable, without status migrainosus
CPT/HCPCS: 10060; 36415; 73201; 80053; 83605; 84145; 85025; 87040; 90471; 90715; 93005; 96365; 96375; 99285; J0696; J3370; J7030; J7050; Q9967

== ENCOUNTER 2021-06-15 11:47 | Emergency (ER) | payer MEDICAID ==
[~2021-06-15] VITALS: Ht 180.3 cm; Wt 78.7 kg
[~2021-06-15 11:47] MED LIST changes: +MIRT-14 PO; -MIRT-34 PO; -OXYC-302 PO; +OXYC1TAB14 PO
--- NOTE | 2021-06-15 15:42 | NUR ---
PT walked back from triage with chief complaint of right hand swelling and increasing anxiety since this am.
[2021-06-15] MEDS ORDERED: ALPR2TAB5 PO (16:18)
[2021-06-15] MEDS ORDERED: NAPR-685 PO (16:19)
--- NOTE | 2021-06-15 17:00 | NUR ---
PT resting in bed.
--- NOTE | 2021-06-15 17:02 | NUR ---
YI Alonzo at bedside for eval.
[2021-06-15] MEDS ORDERED: SODIUM CHLORIDE FLUSH 10ML SYR IVF ONE (17:30)
[2021-06-15] MEDS ORDERED: AMPICILLIN/SULBACTAM 3 GM in SODIUM CHLORIDE 0.9% 100 ML IV ONE (17:30)
[2021-06-15] MEDS ORDERED: VANCOMYCIN PER PHARMACY MC ONE (17:30)
[2021-06-15 17:52] LABS: BASOPHILS % (AUTO) 0 % (0-1); EOSINOPHILS % (AUTO) 0 % (1-7); LYMPHOCYTES % (AUTO) 13 % (22-44); MEAN CORPUSCULAR HEMOGLOBIN 28.4 pg (27.5-34.5); MEAN CORPUSCULAR HGB CONC 35.3 g/dL (33.2-36.2); MEAN PLATELET VOLUME 8.3 fL (7.4-10.4); MONOCYTES % (AUTO) 7 % (2-9); NEUTROPHILS % (AUTO) 79 % (42-75); PLATELET COUNT 180 x10^3/uL (130-400); RED BLOOD COUNT 4.24 x10^6/uL (4.38-5.82); RED CELL DISTRIBUTION WIDTH 13.2 % (9.4-14.8)
[2021-06-15 18:00] LABS: ANION GAP 5 mmol/L (5-15); CALCIUM 9.6 mg/dL (8.5-10.1); CHLORIDE 101 mmol/L (98-107); CREATININE 0.92 mg/dL (0.7-1.3)
[2021-06-15] MEDS ORDERED: VANCOMYCIN 2,000 MG in SODIUM CHLORIDE 0.9% 500 ML IV ONE (18:00)
--- NOTE | 2021-06-15 18:31 | NUR ---
pt resting in bed, abx infusing.
--- NOTE | 2021-06-15 19:14 | NUR ---
FIRST CONTACT WITH PATIENT. PATIENT LYING IN STRETCHER. PATIENT DENIES NEEDS AT THIS TIME. PATIENT WAS UPDATED ON POC AT AT THIS TIME. VANC IS RUNNING. CALL SUMMERS IN REACH. WILL CONTINUE TO MONITOR.
[2021-06-15 20:33] VITALS: BP 136/82
--- NOTE | 2021-06-15 20:34 | NUR ---
Patient given discharge instructions and they have confirmed that they understand the instructions. Patient ambulatory with steady gait. NAD, all questions answered appropriately, denies additional needs at this time. No personal belongings left in room after discharge.
== END 2021-06-15 20:46 | disposition home or self-care (01) ==
LOC: ED 17:35
DX: L03.113 Cellulitis of right upper limb (principal); F11.20 Opioid dependence, uncomplicated; F17.200 Nicotine dependence, unspecified, uncomplicated
CPT/HCPCS: 36415; 80048; 82040; 85025; 87040; 96365; 96366; 96367; 99285; J0295; J3370; J7040